=== PATIENT | male | born 1995 | race Two or more races ===

== ENCOUNTER 2018-05-01 18:36 | Inpatient (IN) | payer OTHER ==
[~2018-05-01] VITALS: Ht 167.6 cm; Wt 109.1 kg
[2018-05-01] MEDS ORDERED: QUET50TA PO (19:29)
[2018-05-01] MEDS ORDERED: SODIUM CHLORIDE 0.9% 2,000 ML IV ONE (19:30)
[2018-05-01] MEDS ORDERED: QUET100T PO (19:33)
[2018-05-01 19:38] LABS: GLUCOSE,POINT OF CARE 132 MG/DL (70-110)
[2018-05-01 20:10] LABS: BASOPHILS % (AUTO) 0.2 % (0.0-2.0); EOSINOPHILS % (AUTO) 0 % (1.0-6.0); HEMATOCRIT 46.7 % (41-53); HEMOGLOBIN 16.5 g/dL (13.5-17.5); LYMPHOCYTES # (AUTO) 1.4 K/uL (1.0-4.8); LYMPHOCYTES % (AUTO) 4.8 % (22.0-44.0); MEAN CORPUSCULAR HEMOGLOBIN 31.5 pg (26.0-34.0); MEAN CORPUSCULAR HGB CONC 35.2 G/dL (31.0-37.0); MEAN CORPUSCULAR VOLUME 89 fL (80-100); MONOCYTES # (AUTO) 2.7 K/uL (0.1-1.0); MONOCYTES % (AUTO) 9.3 % (2.0-9.0); NEUTROPHILS # (AUTO) 25.1 K/uL (1.8-7.7); NEUTROPHILS % (AUTO) 85.7 % (40.0-70.0); PLATELET COUNT (AUTO) 354 K/uL (150-450); RED BLOOD CELL COUNT(AUTO) 5.23 MIL/uL (4.50-5.90); RED CELL DISTRIBUTION WIDTH 13.2 % (11.5-14.5)
[2018-05-01 20:21] LABS: ANION GAP 14 mmol/L (8-16); CALCIUM, TOTAL 9.7 mg/dL (8.8-10.5); CARBON DIOXIDE 21 mmol/L (22-29); CHLORIDE 107 mmol/L (98-107); CREATININE 1.13 mg/dL (0.60-1.30); GLOMERULAR FILTR. RATE CALC 57 mL/min (>60); GLUCOSE,RANDOM 102 mg/dL (70-110); POTASSIUM 3.4 mmol/L (3.5-5.1); SODIUM SERUM 142 mmol/L (136-145); UREA NITROGEN, BLOOD 17 mg/dL (7-18)
[2018-05-01] MEDS ORDERED: PERTUSS(ACELL),DIPH,TET VAC/PF 0.5 ML VIAL IM ONE (20:30)
[2018-05-01] MEDS ORDERED: SODIUM CHLORIDE 0.9% 1,000 ML IV ONE ×2 (20:30)
[2018-05-01 20:34] LABS: ALANINE AMINOTRANSFERASE 30 U/L (12-78); ALBUMIN 4.6 g/dL (3.4-5.0); ALKALINE PHOSPHATASE 99 U/L (46-116); ASPARTATE AMINOTRANSFERASE 31 U/L (15-37); BILIRUBIN,TOTAL 1.1 mg/dL (0.1-1.0); TOTAL PROTEIN, SERUM 8.3 g/dL (6.4-8.2)
[2018-05-01] MEDS ORDERED: DiphenhydrAMINE HCL 50 MG/ML VIAL IM ONE (21:00)
[2018-05-01] MEDS ORDERED: HALOPERIDOL LACTATE 5 MG/ML VIAL IM ONE (21:00)
[2018-05-01] MEDS ORDERED: LORazepam 2 MG/ML VIAL IM ONE (21:00)
[2018-05-01 21:56] LABS: CREATINE KINASE MB 4.9 ng/mL (0-5); CREATINE KINASE, TOTAL 730 U/L (39-308)
[2018-05-01 23:03] LABS: AMPHET/METH SCREEN,URINE NEGATIVE (NEGATIVE); BARBITURATE SCREEN, URINE NEGATIVE (NEGATIVE); BENZODIAZEPINES SCREEN,URINE NEGATIVE (NEGATIVE); CANNABINOID SCREEN,URINE POSITIVE (NEGATIVE); COCAINE SCREEN,URINE NEGATIVE (NEGATIVE); METHADONE SCREEN, URINE NEGATIVE (NEGATIVE); OPIATE SCREEN,URINE NEGATIVE (NEGATIVE); PHENCYCLIDINE SCREEN,URINE NEGATIVE (NEGATIVE)
[2018-05-02] MEDS ORDERED: CefTRIAXone SODIUM 1 GM in DEXTROSE 5%-WATER 10 ML IV ONE ×2 (01:45→09:00)
[2018-05-02 02:16] LABS: BASOPHILS % (AUTO) 0.4 % (0.0-2.0); EOSINOPHILS % (AUTO) 0 % (1.0-6.0); HEMOGLOBIN 14.2 g/dL (13.5-17.5); LYMPHOCYTES # (AUTO) 3.2 K/uL (1.0-4.8); LYMPHOCYTES % (AUTO) 20.2 % (22.0-44.0); MEAN CORPUSCULAR HEMOGLOBIN 31.9 pg (26.0-34.0); MEAN CORPUSCULAR HGB CONC 35.4 G/dL (31.0-37.0); MEAN CORPUSCULAR VOLUME 90 fL (80-100); MONOCYTES % (AUTO) 12.2 % (2.0-9.0); NEUTROPHILS # (AUTO) 10.8 K/uL (1.8-7.7); NEUTROPHILS % (AUTO) 67.2 % (40.0-70.0); PLATELET COUNT (AUTO) 302 K/uL (150-450); RED BLOOD CELL COUNT(AUTO) 4.44 MIL/uL (4.50-5.90); RED CELL DISTRIBUTION WIDTH 13.2 % (11.5-14.5)
[2018-05-02] MEDS ORDERED: SODIUM CHLORIDE 0.9% 1,000 ML IV ONE (03:30)
[2018-05-02] MEDS ORDERED: MORPHINE SULFATE 4 MG/ML SYRINGE IVP PRN (05:30)
[2018-05-02] MEDS ORDERED: ONDANSETRON HCL 4 MG/2 ML VIAL IVP PRN (05:30)
[2018-05-02] MEDS ORDERED: MAGNESIUM HYDROXIDE SUSPENSION 30 ML UDCUP PO PRN ×2 (05:30→07:30)
[2018-05-02] MEDS ORDERED: BISACODYL 10 MG RECTAL RECTAL SUPPOSITORY PR PRN (05:30)
[2018-05-02] MEDS ORDERED: ACETAMINOPHEN 325 MG TABLET PO PRN ×2 (05:30→07:30)
[2018-05-02] MEDS ORDERED: HALOPERIDOL LACTATE 5 MG/ML VIAL IM PRN (07:45)
[2018-05-02] MEDS ORDERED: CLINDAMYCIN 900 MG/D5% WATER 50 ML IV ONE (08:00)
[2018-05-02 08:10] VITALS: BP 140/88
[2018-05-02] MEDS: DOCUSATE SODIUM 100 MG CAPSULE PO SCH ×2 (08:45→22:54)
[2018-05-02] MEDS ORDERED: PANTOPRAZOLE SODIUM 40 MG/VIAL IVP SCH (09:00)
[2018-05-02] MEDS ORDERED: BACITRACIN 0.9 GM PACKET OINTMENT TP ONE (09:00)
[2018-05-02] MEDS ORDERED: ENOXAPARIN SODIUM 40 MG/0.4 ML PF SYRINGE SQ SCH (09:00)
[2018-05-02 09:15] LABS: BASOPHILS % (AUTO) 0.3 % (0.0-2.0); EOSINOPHILS % (AUTO) 0.2 % (1.0-6.0); HEMATOCRIT 37.3 % (41-53); HEMOGLOBIN 13.1 g/dL (13.5-17.5); LYMPHOCYTES # (AUTO) 2.7 K/uL (1.0-4.8); LYMPHOCYTES % (AUTO) 20.4 % (22.0-44.0); MEAN CORPUSCULAR HEMOGLOBIN 31.9 pg (26.0-34.0); MEAN CORPUSCULAR HGB CONC 35.2 G/dL (31.0-37.0); MEAN CORPUSCULAR VOLUME 91 fL (80-100); MONOCYTES # (AUTO) 1.6 K/uL (0.1-1.0); MONOCYTES % (AUTO) 11.9 % (2.0-9.0); NEUTROPHILS # (AUTO) 8.9 K/uL (1.8-7.7); NEUTROPHILS % (AUTO) 67.2 % (40.0-70.0); PLATELET COUNT (AUTO) 265 K/uL (150-450); RED BLOOD CELL COUNT(AUTO) 4.12 MIL/uL (4.50-5.90); RED CELL DISTRIBUTION WIDTH 13.4 % (11.5-14.5)
[2018-05-02 09:19] LABS: ANION GAP 11 mmol/L (8-16); CALCIUM, TOTAL 7.6 mg/dL (8.8-10.5); CARBON DIOXIDE 20 mmol/L (22-29); CHLORIDE 107 mmol/L (98-107); CREATININE 0.94 mg/dL (0.60-1.30); GLOMERULAR FILTR. RATE CALC > 60 mL/min (>60); GLUCOSE,RANDOM 107 mg/dL (70-110); POTASSIUM 3.4 mmol/L (3.5-5.1); SODIUM SERUM 138 mmol/L (136-145); UREA NITROGEN, BLOOD 10 mg/dL (7-18)
[2018-05-02 09:24] LABS: ALANINE AMINOTRANSFERASE 30 U/L (12-78); ALBUMIN 3.1 g/dL (3.4-5.0); ALKALINE PHOSPHATASE 74 U/L (46-116); ASPARTATE AMINOTRANSFERASE 61 U/L (15-37); BILIRUBIN,TOTAL 0.9 mg/dL (0.1-1.0); TOTAL PROTEIN, SERUM 5.8 g/dL (6.4-8.2)
[2018-05-02 09:56] LABS: LACTIC ACID 2.7 mmol/L (0.4-2.0)
[2018-05-02] MEDS: SODIUM CHLORIDE 0.9% 1,000 ML IV SCH ×2 (10:52→20:43)
[2018-05-02 11:48] VITALS: BP 111/54
[2018-05-02] MEDS: LORazepam 2 MG/ML VIAL IVP PRN (12:40)
[2018-05-02] MEDS ORDERED: CefTRIAXone SODIUM 1 GM in DEXTROSE 5%-WATER 10 ML IV SCH (14:00)
[2018-05-02 16:12] VITALS: BP 134/79
[2018-05-02 19:25] VITALS: BP 130/68
[2018-05-02] MEDS: CefTRIAXone SODIUM 1 GM in DEXTROSE 5%-WATER 10 ML IV SCH (22:55)
[2018-05-02 23:40] VITALS: BP_SYST 110; BP_SYST 136; BP_DIAS 58; BP_DIAS 82
[2018-05-03 04:58] VITALS: BP 132/82
[2018-05-03] MEDS: SODIUM CHLORIDE 0.9% 1,000 ML IV SCH ×3 (06:03→23:45)
[2018-05-03 06:26] LABS: BASOPHILS % (AUTO) 0.5 % (0.0-2.0); EOSINOPHILS % (AUTO) 0.4 % (1.0-6.0); HEMATOCRIT 37.8 % (41-53); HEMOGLOBIN 13.6 g/dL (13.5-17.5); LYMPHOCYTES # (AUTO) 2.6 K/uL (1.0-4.8); LYMPHOCYTES % (AUTO) 29.6 % (22.0-44.0); MEAN CORPUSCULAR HEMOGLOBIN 32.3 pg (26.0-34.0); MEAN CORPUSCULAR HGB CONC 35.9 G/dL (31.0-37.0); MEAN CORPUSCULAR VOLUME 90 fL (80-100); MONOCYTES # (AUTO) 0.9 K/uL (0.1-1.0); MONOCYTES % (AUTO) 9.7 % (2.0-9.0); NEUTROPHILS # (AUTO) 5.3 K/uL (1.8-7.7); NEUTROPHILS % (AUTO) 59.8 % (40.0-70.0); PLATELET COUNT (AUTO) 248 K/uL (150-450); RED CELL DISTRIBUTION WIDTH 13.2 % (11.5-14.5)
[2018-05-03 07:02] LABS: ALANINE AMINOTRANSFERASE 38 U/L (12-78); ALKALINE PHOSPHATASE 75 U/L (46-116); ANION GAP 8 mmol/L (8-16); ASPARTATE AMINOTRANSFERASE 71 U/L (15-37); BILIRUBIN,TOTAL 0.6 mg/dL (0.1-1.0); CALCIUM, TOTAL 7.9 mg/dL (8.8-10.5); CARBON DIOXIDE 25 mmol/L (22-29); CHLORIDE 108 mmol/L (98-107); CREATININE 0.66 mg/dL (0.60-1.30); GLOMERULAR FILTR. RATE CALC > 60 mL/min (>60); GLUCOSE,RANDOM 90 mg/dL (70-110); POTASSIUM 3.7 mmol/L (3.5-5.1); SODIUM SERUM 141 mmol/L (136-145); TOTAL PROTEIN, SERUM 5.8 g/dL (6.4-8.2); UREA NITROGEN, BLOOD 3 mg/dL (7-18)
[2018-05-03] MEDS: DOCUSATE SODIUM 100 MG CAPSULE PO SCH ×2 (10:37→20:28)
[2018-05-03 12:23] VITALS: BP 141/95
[2018-05-03 16:23] VITALS: BP 116/63
[2018-05-03] MEDS: LORazepam 2 MG/ML VIAL IVP PRN ×2 (17:51→21:49)
[2018-05-03 19:55] VITALS: BP 124/58
[2018-05-03] MEDS ORDERED: OLANZapine 10 MG TABLET PO SCH (21:00)
[2018-05-03] MEDS: CefTRIAXone SODIUM 1 GM in DEXTROSE 5%-WATER 10 ML IV SCH (22:14)
[2018-05-03 23:32] VITALS: BP 130/81
[2018-05-04 04:39] VITALS: BP 125/75
[2018-05-04 08:03] VITALS: BP 132/68
[2018-05-04] MEDS: DOCUSATE SODIUM 100 MG CAPSULE PO SCH (08:56)
[2018-05-04] MEDS ORDERED: OLAN10TA3 PO (11:08)
[2018-05-04] MEDS ORDERED: CEPH500 PO (11:10)
[2018-05-04 14:08] VITALS: BP 137/81
== END 2018-05-04 14:20 | disposition home or self-care (01) | DRG 720 ==
LOC: EMS 18:40 → EDBD 18:40 → 6N 05-02 05:32
PROVIDERS: ADMIT Internal Medicine; ATTEND Internal Medicine
DX: A41.9 Sepsis, unspecified organism (principal); G93.40 Encephalopathy, unspecified; F20.0 Paranoid schizophrenia; Z78.1 Physical restraint status; E66.9 Obesity, unspecified; L03.90 Cellulitis, unspecified; F12.10 Cannabis abuse, uncomplicated; W17.89XA Other fall from one level to another, initial encounter; S00.81XA Abrasion of other part of head, initial encounter; S80.812A Abrasion, left lower leg, initial encounter; S80.811A Abrasion, right lower leg, initial encounter; S40.212A Abrasion of left shoulder, initial encounter; S40.211A Abrasion of right shoulder, initial encounter; F17.210 Nicotine dependence, cigarettes, uncomplicated; Z91.19 Patient's noncompliance with other medical treatment and regimen; Z79.899 Other long term (current) drug therapy; Z72.89 Other problems related to lifestyle; Z68.38 Body mass index [BMI] 38.0-38.9, adult; Y93.89 Activity, other specified; Y92.89 Other specified places as the place of occurrence of the external cause; Y99.8 Other external cause status
CPT/HCPCS: 70450; 72125; 83605; 87040; 90471; 90715; 96365; 96366; 96372; 99291; C9113; G0480; J0696; J1200; J1630; J1650; J2060; J3490; J7030; J7060

== ENCOUNTER 2019-07-20 17:49 | Inpatient (IN) | payer MEDICAID, OTHER ==
[~2019-07-20] VITALS: Ht 167.6 cm; Wt 99.9 kg
[~2019-07-20 17:49] MED LIST: CEPH500 PO; OLAN10TA3 PO; QUET100T PO; QUET200T29 PO
[2019-07-20 18:32] LABS: ANION GAP 13 mmol/L (8-16); CALCIUM, TOTAL 9.1 mg/dL (8.8-10.5); CARBON DIOXIDE 24 mmol/L (22-29); CHLORIDE 103 mmol/L (98-107); CREATININE 0.69 mg/dL (0.60-1.30); GLOMERULAR FILTR. RATE CALC > 60 mL/min (>60); GLUCOSE,RANDOM 99 mg/dL (70-110); POTASSIUM 3.6 mmol/L (3.5-5.1); SODIUM SERUM 140 mmol/L (136-145); UREA NITROGEN, BLOOD 10 mg/dL (7-18)
[2019-07-20 18:37] LABS: BASOPHILS % (AUTO) 0.4 % (0.0-2.0); EOSINOPHILS % (AUTO) 1.6 % (1.0-6.0); HEMATOCRIT 42.8 % (41-53); HEMOGLOBIN 14.3 g/dL (13.5-17.5); LYMPHOCYTES # (AUTO) 2.4 K/uL (1.0-4.8); LYMPHOCYTES % (AUTO) 32.1 % (22.0-44.0); MEAN CORPUSCULAR HEMOGLOBIN 31.1 pg (26.0-34.0); MEAN CORPUSCULAR HGB CONC 33.3 G/dL (31.0-37.0); MEAN CORPUSCULAR VOLUME 93 fL (80-100); MONOCYTES # (AUTO) 0.7 K/uL (0.1-1.0); MONOCYTES % (AUTO) 9.3 % (2.0-9.0); NEUTROPHILS # (AUTO) 4.2 K/uL (1.8-7.7); NEUTROPHILS % (AUTO) 56.6 % (40.0-70.0); PLATELET COUNT (AUTO) 232 K/uL (150-450); RED BLOOD CELL COUNT(AUTO) 4.59 MIL/uL (4.50-5.90); RED CELL DISTRIBUTION WIDTH 13.1 % (11.5-14.5)
[2019-07-20 18:49] LABS: ALANINE AMINOTRANSFERASE 20 U/L (12-78); ALBUMIN 3.8 g/dL (3.4-5.0); ALKALINE PHOSPHATASE 88 U/L (46-116); ASPARTATE AMINOTRANSFERASE 21 U/L (15-37); BILIRUBIN,TOTAL 0.4 mg/dL (0.1-1.0)
[2019-07-20 19:14] LABS: AMPHET/METH SCREEN,URINE POSITIVE (NEGATIVE); BARBITURATE SCREEN, URINE NEGATIVE (NEGATIVE); BENZODIAZEPINES SCREEN,URINE NEGATIVE (NEGATIVE); CANNABINOID SCREEN,URINE POSITIVE (NEGATIVE); COCAINE SCREEN,URINE NEGATIVE (NEGATIVE); METHADONE SCREEN, URINE NEGATIVE (NEGATIVE); OPIATE SCREEN,URINE NEGATIVE (NEGATIVE)
[2019-07-20 19:15] LABS: PHENCYCLIDINE SCREEN,URINE NEGATIVE (NEGATIVE)
[2019-07-20] MEDS ORDERED: QUEtiapine FUMARATE 100 MG TABLET PO PRN (20:30)
[2019-07-20] MEDS ORDERED: LORazepam 2 MG TABLET PO PRN (20:30)
[2019-07-21] MEDS ORDERED: LORazepam 2 MG TABLET PO ONE (08:45)
[2019-07-21] MEDS ORDERED: QUEtiapine FUMARATE 100 MG TABLET PO ONE (08:45)
[2019-07-21] MEDS ORDERED: IBUPROFEN 400 MG TABLET PO PRN ×2 (10:15→22:30)
[2019-07-21] MEDS ORDERED: ACETAMINOPHEN 325 MG TABLET PO PRN ×2 (10:15→22:30)
[2019-07-21 13:58] VITALS: BP 125/68
[2019-07-21 16:27] VITALS: BP 120/61
[2019-07-21] MEDS: HALOPERIDOL 5 MG TABLET PO PRN (17:42)
[2019-07-21] MEDS: LORazepam 2 MG TABLET PO PRN (17:42)
[2019-07-21] MEDS: ZOLPIDEM TARTRATE 10 MG TABLET PO PRN (20:12)
[2019-07-21] MEDS ORDERED: LOPERAMIDE HCL 2 MG CAPSULE PO PRN (22:30)
[2019-07-21] MEDS ORDERED: PETROLATUM,WHITE 28 GM JELLY TP PRN (22:30)
[2019-07-21] MEDS ORDERED: MAG HYDROX/AL HYDROX/SIMETH ES 30 ML SUSPENSION UDCUP PO PRN (22:30)
[2019-07-21] MEDS ORDERED: DOCUSATE SODIUM 100 MG CAPSULE PO PRN (22:30)
[2019-07-21] MEDS ORDERED: MAGNESIUM HYDROXIDE SUSPENSION 30 ML UDCUP PO PRN (22:30)
[2019-07-21] MEDS ORDERED: CloNIDine HCL 0.1 MG TABLET PO PRN (22:30)
[2019-07-21] MEDS ORDERED: ONDANSETRON HCL 4 MG TABLET PO PRN (22:30)
[2019-07-22] MEDS: LORazepam 2 MG TABLET PO PRN ×3 (02:00→21:19)
[2019-07-22] MEDS: HALOPERIDOL 5 MG TABLET PO PRN ×3 (02:00→21:19)
[2019-07-22 06:01] VITALS: BP 118/71
[2019-07-22 08:23] VITALS: BP 112/61
[2019-07-22 09:03] LABS: BASOPHILS % (AUTO) 0.4 % (0.0-2.0); EOSINOPHILS % (AUTO) 2.4 % (1.0-6.0); HEMATOCRIT 44.3 % (41-53); HEMOGLOBIN 14.7 g/dL (13.5-17.5); LYMPHOCYTES % (AUTO) 38.4 % (22.0-44.0); MEAN CORPUSCULAR HGB CONC 33.2 G/dL (31.0-37.0); MEAN CORPUSCULAR VOLUME 93 fL (80-100); MONOCYTES # (AUTO) 0.4 K/uL (0.1-1.0); MONOCYTES % (AUTO) 8.7 % (2.0-9.0); NEUTROPHILS # (AUTO) 2.6 K/uL (1.8-7.7); NEUTROPHILS % (AUTO) 50.1 % (40.0-70.0); PLATELET COUNT (AUTO) 230 K/uL (150-450); RED BLOOD CELL COUNT(AUTO) 4.76 MIL/uL (4.50-5.90); RED CELL DISTRIBUTION WIDTH 13.3 % (11.5-14.5)
[2019-07-22 09:14] LABS: HEMOGLOBIN A1C 5.3 % (4.5-6.2)
[2019-07-22 09:39] LABS: ALANINE AMINOTRANSFERASE 19 U/L (12-78); ALBUMIN 3.6 g/dL (3.4-5.0); ALKALINE PHOSPHATASE 88 U/L (46-116); ANION GAP 11 mmol/L (8-16); ASPARTATE AMINOTRANSFERASE 14 U/L (15-37); BILIRUBIN,TOTAL 0.3 mg/dL (0.1-1.0); CALCIUM, TOTAL 8.8 mg/dL (8.8-10.5); CARBON DIOXIDE 23 mmol/L (22-29); CHLORIDE 102 mmol/L (98-107); CHOL/HDL RATIO 4.1 (4.2-7.3); CHOLESTEROL 114 mg/dL (131-200); CREATININE 0.59 mg/dL (0.60-1.30); GLOMERULAR FILTR. RATE CALC > 60 mL/min (>60); GLUCOSE,RANDOM 109 mg/dL (70-110); HDL CHOLESTEROL 28 mg/dL (40-60); LDL CHOL (CALC.) 62 mg/dL (0-130); POTASSIUM 4.2 mmol/L (3.5-5.1); SODIUM SERUM 136 mmol/L (136-145); THYROID STIMULATING HORMONE 2.15 uIU/mL (0.36-3.74); TOTAL PROTEIN, SERUM 6.6 g/dL (6.4-8.2); TRIGLYCERIDES 118 mg/dL (15-150); UREA NITROGEN, BLOOD 11 mg/dL (7-18)
[2019-07-22] MEDS: NICOTINE 14 MG/24 HOUR PATCH TD PRN (14:03)
[2019-07-22 16:00] VITALS: BP 110/65
[2019-07-22] MEDS: QUEtiapine FUMARATE 200 MG TABLET PO SCH (16:49)
[2019-07-22] MEDS: ZOLPIDEM TARTRATE 10 MG TABLET PO PRN (21:19)
[2019-07-23] MEDS: HALOPERIDOL 5 MG TABLET PO PRN ×4 (03:36→23:55)
[2019-07-23] MEDS: LORazepam 2 MG TABLET PO PRN ×4 (03:36→23:54)
[2019-07-23 03:53] VITALS: BP 114/73
[2019-07-23 08:21] VITALS: BP 124/80
[2019-07-23] MEDS: QUEtiapine FUMARATE 200 MG TABLET PO SCH ×2 (09:30→16:54)
[2019-07-23] MEDS ORDERED: LORazepam 2 MG/ML VIAL ONE (10:56)
[2019-07-23] MEDS ORDERED: LORazepam 2 MG/ML VIAL IM ONE (11:00)
[2019-07-23 16:00] VITALS: BP 108/66
[2019-07-23] MEDS: ZOLPIDEM TARTRATE 10 MG TABLET PO PRN (23:54)
[2019-07-24 00:02] VITALS: BP 103/67
[2019-07-24] MEDS: LORazepam 2 MG TABLET PO PRN ×3 (08:04→20:56)
[2019-07-24] MEDS: QUEtiapine FUMARATE 200 MG TABLET PO SCH ×2 (08:04→16:45)
[2019-07-24 08:34] VITALS: BP 127/79
[2019-07-24 16:00] VITALS: BP 116/77
[2019-07-24] MEDS: HALOPERIDOL 5 MG TABLET PO PRN (17:08)
[2019-07-24] MEDS: ZOLPIDEM TARTRATE 10 MG TABLET PO PRN (20:56)
[2019-07-25 05:44] VITALS: BP 116/63
[2019-07-25 08:20] VITALS: BP 121/64
[2019-07-25] MEDS: LORazepam 2 MG TABLET PO PRN ×3 (09:04→17:57)
[2019-07-25] MEDS: HALOPERIDOL 5 MG TABLET PO PRN ×3 (09:04→17:57)
[2019-07-25] MEDS: QUEtiapine FUMARATE 200 MG TABLET PO SCH ×2 (09:04→16:16)
[2019-07-25 16:00] VITALS: BP 118/70
[2019-07-25] MEDS ORDERED: PALIPERIDONE PALMITATE 234 MG/1.5 ML SYRINGE IM ONE (16:00)
[2019-07-25] MEDS: ZOLPIDEM TARTRATE 10 MG TABLET PO PRN (20:25)
[2019-07-26] MEDS: LORazepam 2 MG TABLET PO PRN ×4 (00:07→22:31)
[2019-07-26] MEDS: HALOPERIDOL 5 MG TABLET PO PRN ×2 (03:59→17:37)
[2019-07-26 04:10] VITALS: BP 125/73
[2019-07-26 08:33] VITALS: BP 140/88
[2019-07-26] MEDS: QUEtiapine FUMARATE 200 MG TABLET PO SCH ×2 (08:37→16:24)
[2019-07-26 16:00] VITALS: BP 122/69
[2019-07-26] MEDS: ZOLPIDEM TARTRATE 10 MG TABLET PO PRN (22:31)
[2019-07-27 00:11] VITALS: BP 114/78
[2019-07-27] MEDS: HALOPERIDOL 5 MG TABLET PO PRN ×3 (00:11→08:58)
[2019-07-27] MEDS: LORazepam 2 MG TABLET PO PRN ×3 (04:55→16:01)
[2019-07-27 08:02] VITALS: BP 110/66
[2019-07-27] MEDS: QUEtiapine FUMARATE 200 MG TABLET PO SCH ×2 (08:25→16:01)
[2019-07-27 16:00] VITALS: BP 115/74
[2019-07-28 04:58] VITALS: BP 137/67
[2019-07-28] MEDS: LORazepam 2 MG TABLET PO PRN ×3 (05:01→18:23)
[2019-07-28] MEDS: HALOPERIDOL 5 MG TABLET PO PRN ×3 (05:01→18:23)
[2019-07-28 08:47] VITALS: BP 109/73
[2019-07-28] MEDS: QUEtiapine FUMARATE 200 MG TABLET PO SCH ×2 (08:55→16:15)
[2019-07-28 16:00] VITALS: BP 121/74
[2019-07-28] MEDS: ZOLPIDEM TARTRATE 10 MG TABLET PO PRN (20:48)
[2019-07-29 05:13] VITALS: BP 101/62
[2019-07-29] MEDS: LORazepam 2 MG TABLET PO PRN ×2 (05:20→16:08)
[2019-07-29] MEDS: HALOPERIDOL 5 MG TABLET PO PRN ×2 (05:21→16:44)
[2019-07-29 08:00] VITALS: BP 118/69
[2019-07-29] MEDS: QUEtiapine FUMARATE 200 MG TABLET PO SCH ×2 (08:22→16:08)
[2019-07-29 16:09] VITALS: BP 124/76
[2019-07-29] MEDS ORDERED: BENZONATATE 100 MG CAPSULE PO PRN (16:15)
[2019-07-29] MEDS: ZOLPIDEM TARTRATE 10 MG TABLET PO PRN (22:10)
[2019-07-30] MEDS: LORazepam 2 MG TABLET PO PRN ×2 (05:55→17:03)
[2019-07-30 06:40] VITALS: BP 130/74
[2019-07-30 08:23] VITALS: BP 130/74
[2019-07-30] MEDS: QUEtiapine FUMARATE 200 MG TABLET PO SCH ×2 (09:37→17:03)
[2019-07-30 16:00] VITALS: BP 114/66
[2019-07-30] MEDS: HALOPERIDOL 5 MG TABLET PO PRN (18:44)
[2019-07-31 00:46] VITALS: BP 111/69
[2019-07-31] MEDS: LORazepam 2 MG TABLET PO PRN ×4 (00:46→16:18)
[2019-07-31] MEDS: ZOLPIDEM TARTRATE 10 MG TABLET PO PRN ×2 (00:46→20:13)
[2019-07-31] MEDS: HALOPERIDOL 5 MG TABLET PO PRN ×4 (00:46→16:18)
[2019-07-31 08:07] VITALS: BP 126/84
[2019-07-31] MEDS: QUEtiapine FUMARATE 200 MG TABLET PO SCH ×2 (08:16→16:06)
[2019-07-31 16:07] VITALS: BP 128/82
[2019-08-01 06:47] VITALS: BP 116/78
[2019-08-01 08:13] VITALS: BP 109/65
[2019-08-01] MEDS: QUEtiapine FUMARATE 200 MG TABLET PO SCH ×2 (08:20→16:47)
[2019-08-01] MEDS: LORazepam 2 MG TABLET PO PRN ×3 (12:46→21:04)
[2019-08-01 16:00] VITALS: BP 110/70
[2019-08-01] MEDS: HALOPERIDOL 5 MG TABLET PO PRN (16:47)
[2019-08-01] MEDS: ZOLPIDEM TARTRATE 10 MG TABLET PO PRN (21:04)
[2019-08-02 06:06] VITALS: BP 114/72
[2019-08-02] MEDS: QUEtiapine FUMARATE 200 MG TABLET PO SCH ×2 (08:18→16:34)
[2019-08-02] MEDS: LORazepam 2 MG TABLET PO PRN (16:34)
[2019-08-02] MEDS: ZOLPIDEM TARTRATE 10 MG TABLET PO PRN (20:36)
[2019-08-03] MEDS: QUEtiapine FUMARATE 200 MG TABLET PO SCH ×2 (08:16→17:12)
[2019-08-03 08:31] VITALS: BP 128/85
[2019-08-03] MEDS: LORazepam 2 MG TABLET PO PRN ×2 (09:28→14:04)
[2019-08-04] MEDS: ZOLPIDEM TARTRATE 10 MG TABLET PO PRN ×2 (01:11→20:08)
[2019-08-04] MEDS: LORazepam 2 MG TABLET PO PRN ×4 (01:11→21:02)
[2019-08-04 01:29] VITALS: BP 132/75
[2019-08-04] MEDS: QUEtiapine FUMARATE 200 MG TABLET PO SCH ×2 (08:12→16:35)
[2019-08-04 08:48] VITALS: BP 130/83
[2019-08-04] MEDS: NICOTINE 14 MG/24 HOUR PATCH TD PRN (10:35)
[2019-08-04 16:06] VITALS: BP 113/72
[2019-08-04] MEDS: HALOPERIDOL 5 MG TABLET PO PRN ×2 (16:36→21:03)
[2019-08-05] MEDS: LORazepam 2 MG TABLET PO PRN ×2 (01:22→06:58)
[2019-08-05] MEDS: HALOPERIDOL 5 MG TABLET PO PRN ×2 (01:22→06:57)
[2019-08-05 01:24] VITALS: BP 125/81
[2019-08-05 08:03] VITALS: BP 140/55
[2019-08-05] MEDS: QUEtiapine FUMARATE 200 MG TABLET PO SCH (08:20)
[2019-08-05] MEDS ORDERED: QUET200T29 PO (08:32)
[2019-08-05] MEDS: NICOTINE 14 MG/24 HOUR PATCH TD PRN (08:59)
== END 2019-08-05 13:39 | disposition home or self-care (01) | DRG 750 ==
LOC: EMS 17:51 → B3A 07-21 10:41 → UNDOADMIN 07-21 10:41 → B3A 07-21 14:16
PROVIDERS: ADMIT Psychiatry & Neurology Child & Adolescent Psychiatry; ATTEND Psychiatry & Neurology Child & Adolescent Psychiatry
DX: F20.0 Paranoid schizophrenia (principal); R45.851 Suicidal ideations; Z59.0 Homelessness; F12.10 Cannabis abuse, uncomplicated; F15.10 Other stimulant abuse, uncomplicated; G89.29 Other chronic pain; F41.9 Anxiety disorder, unspecified; J45.909 Unspecified asthma, uncomplicated; Z79.899 Other long term (current) drug therapy; Z88.8 Allergy status to other drugs, medicaments and biological substances
CPT/HCPCS: 83036; 84443; G0480; J2060; J3230